=== PATIENT | male | born 1990 | race Caucasian/White ===

== ENCOUNTER 2021-05-13 10:50 | Emergency (ER) | payer OTHER, SELFPAY ==
[2021-05-13 11:21] VITALS: BP 168/100; PULSE 99; RESP 16; TEMP 37.2; O2SAT 99; BMI 33.5
--- NOTE | 2021-05-13 11:48 | PC.NURSE ---
girlfriend gave phone number of mom Zandra Sotelo [phone]
--- NOTE | 2021-05-13 12:00 | ED.PSYCH ---
HPI - Psych General Chief Complaint: Psychiatric Symptoms Stated Complaint: crisis Time Seen by Provider: 05/13/21 11:16 Source: patient Mode of arrival: ambulatory Limitations: no limitations History of Present Illness HPI Narrative: 30-year-old male with history opiate use disorder status post recent opiate detox who is presenting to the ER with ongoing anxiety. He reports a lot of stress from his mother who has been encouraging to come to the hospital for help. He has not been sleeping well and is dealing with a lot of anxiety as he adjusts moving for here from [place]. He states he does not of he is going to stay here or move back to [place]. He has been completely sober from opiates and is not on any methadone or Suboxone. He reports restless legs at night and his mind racing. He is currently not on any psychiatric medications. He reports a trial of Depakote in the past, unclear for what, but he did not like the way it made him feel. He reports using marijuana to help him sleep which has been helping somewhat. He does not have a therapist or psychiatrist. He is open to both of these options. He denies any suicidal or homicidal ideation. He feels safe at home. complaint: anxiety Onset (ago): week(s) Duration: constant History of same: Yes Relieving factors: none Exacerbating factors: other (Distress his mother puts on him) Context: significant life stressor Associated psychiatric symptoms: racing thoughts Associated symptoms: insomnia Treatments prior to arrival: none Related Data Allergies Allergy/AdvReac Type Severity Reaction Status Date / Time shellfish derived Allergy Hives Verified 05/13/21 11:42 Review of Systems Review of Systems: Constitutional: No Fever, No Chills ENT/Mouth: No sore throat, No Rhinorrhea, No Swallowing Difficulty Cardiovascular: No Chest Pain, No SOB, No Orthopnea, No Edema Respiratory: No Cough, No Sputum, No Wheezing, No dyspnea Gastrointestinal: No Nausea, No Vomiting, No Diarrhea, No abdominal Pain Genitourinary: No Dysuria, No Urinary Frequency, No Hematuria Musculoskeletal: No joint pain, No Myalgias, +restless legs Skin: No Skin Lesions, No rash Neuro: No Weakness, No Numbness, No Dizziness, + Headache Psych: + Anxiety/Panic, + Depression, No SI or HI, No AH or VH Heme/Lymph: No Bruising, No Lymphadenopathy Endocrine: No Polyuria, No Polydipsia [facility] Social History Social History Advance Directives: No Advance Directives Information Provided: Yes Physical Exam Vital Signs: Vital Signs: Last Vital Signs Temp 98.9 F 05/13/21 11:21 Pulse 106 H 05/13/21 17:26 Resp 20 05/13/21 17:26 BP 152/84 H 05/13/21 17:26 Pulse Ox 97 05/13/21 17:26 Body Mass Index 33.5 Appearance: Alert. Oriented X3. No acute distress. HEENT: normal external inspection Neck: Normal inspection. Neck supple. CVS: Normal heart rate and rhythm. Pulses normal. Respiratory: No respiratory distress. Breath sounds normal. Abdomen: Soft and nontender. +BS x4 Skin: Skin warm and dry. Normal skin color. Normal skin turgor. No rashes. Extremities: No lower extremity edema. Neuro: Oriented X 3. No motor deficit. No sensory deficit. CN II-XII intact. Psych: did not make eye contact at beginning of interview but opened up, normal thought process, no SI or HI, answers questions appropriately. tapping leg continuously. no tremors. Course Course Course Narrative: 30-year-old male with recent sobriety from opiates after completing a detox program in [facility] presents to the ER with ongoing anxiety for the last 3 weeks since being discharged. He reports significant life stressors from his mother and he just wants to be left alone. He is not sleeping well. He is open to therapy and Psychiatry. He would like to avoid prescription medications and take something [id number] to help him sleep. We discussed Benadryl and melatonin as safe options for him. Will check basic lab workup and have the care team at see him for community resources. At this time he is not suicidal or homicidal; do not anticipate inpatient level of care. Reevaluation(s) Reevaluation #1: After given a dose of Atarax for anxiety patient took a long nap in decline to talk to the personal health coach until he was awake. His urine was positive for fentanyl, barbiturates, and marijuana. Reevaluation #2: Patient spoke with personal health coach, and member of the care team extensively. At this time he just wants to go home. He is interested in the psychiatrist and getting started on medication. He still does not know if he is staying in this area or going back to [place]. He was given multiple resources. He is stable for discharge home with outpatient follow-up. MDM - Psych Lab Data Result diagrams: 05/13/21 12:06 05/13/21 12:06 Labs: Lab Results 05/13/21 05/13/21 05/13/21 Range/Units 12:06 12:06 12:06 WBC 8.7 (4.8-10.8) X10*3/uL RBC 4.80 (4.60-5.80) X10*6/uL Hgb 13.7 L (14.0-18.0) g/dl Hct 41.8 L (42-52) % MCV 87.1 (80-98) fL MCH 28.5 (27.0-33.0) pg MCHC 32.8 (31.0-36.0) g/dl RDW 14.6 (11.0-16.0) % Plt Count 215 (160-400) X10*3/uL MPV 9.6 (9.4-12.4) fL Immature Gran % (Auto) 0.3 (0.0-0.4) % Neut % (Auto) 62.8 (45-73) % Lymph % (Auto) 25.4 (20-40) % Mingo % (Auto) 6.8 (2-11) % Eos % (Auto) 4.2 H (0-4) % Baso % (Auto) 0.5 (0-2) % Lymph # (Auto) 2.2 (1.2-4.9) X10*3/uL Mingo # (Auto) 0.6 (0.1-1.2) X10*3/uL Eos # (Auto) 0.4 (0.0-0.4) X10*3/uL Baso # (Auto) 0.0 (0.0-0.2) X10*3/uL Abs Immat Gran (auto) 0.03 (0.00-0.03) X10*3/uL Absolute Neuts (auto) 5.5 (2.0-8.3) X10*3/uL Absolute Nucleated RBC 0.000 (0.0-0.012) X10*3/uL Nucleated RBC % (auto) 0.0 (0.0-0.2) /100WBC Sodium 141 (135-145) mmol/L Potassium 4.1 (3.3-5.1) mmol/L Chloride 111 H (96-108) mmol/L Carbon Dioxide 23 (22-29) mmol/L Anion Gap 11 L (12-20) BUN 12 (9-16) mg/dL Creatinine 0.93 (0.5-1.4) mg/dL Estim Creat Clear Calc 131.9 Estimated GFR > 60 Random Glucose 118 H (60-115) mg/dL Calcium 9.2 (8.4-10.2) mg/dL Total Bilirubin 0.2 (0.0-1.0) mg/dL AST 10 (5-37) U/L ALT 17 (0-40) U/L Alkaline Phosphatase 99 (39-117) U/L Total Protein 7.0 (6.5-8.0) g/dL Albumin 4.3 (3.5-5.0) g/dL Urine Opiates Screen (Not Detect) Urine Fentanyl Screen (Not Detect) Ur Barbiturates Screen (Not Detect) Ur Phencyclidine Scrn (Not Detect) Ur Amphetamines Screen (Not Detect) U Benzodiazepines Scrn (Not Detect) Urine Cocaine Screen (Not Detect) U Marijuana (THC) Screen (Not Detect) Ethyl Alcohol mg/dL COVID-19 (DOMINIC) Negative (Negative) COVID-19 Clin Com See Note 05/13/21 05/13/21 Range/Units 12:06 12:06 WBC (4.8-10.8) X10*3/uL RBC (4.60-5.80) X10*6/uL Hgb (14.0-18.0) g/dl Hct (42-52) % MCV (80-98) fL MCH (27.0-33.0) pg MCHC (31.0-36.0) g/dl RDW (11.0-16.0) % Plt Count (160-400) X10*3/uL MPV (9.4-12.4) fL Immature Gran % (Auto) (0.0-0.4) % Neut % (Auto) (45-73) % Lymph % (Auto) (20-40) % Mingo % (Auto) (2-11) % Eos % (Auto) (0-4) % Baso % (Auto) (0-2) % Lymph # (Auto) (1.2-4.9) X10*3/uL Mingo # (Auto) (0.1-1.2) X10*3/uL Eos # (Auto) (0.0-0.4) X10*3/uL Baso # (Auto) (0.0-0.2) X10*3/uL Abs Immat Gran (auto) (0.00-0.03) X10*3/uL Absolute Neuts (auto) (2.0-8.3) X10*3/uL Absolute Nucleated RBC (0.0-0.012) X10*3/uL Nucleated RBC % (auto) (0.0-0.2) /100WBC Sodium (135-145) mmol/L Potassium (3.3-5.1) mmol/L Chloride (96-108) mmol/L Carbon Dioxide (22-29) mmol/L Anion Gap (12-20) BUN (9-16) mg/dL Creatinine (0.5-1.4) mg/dL Estim Creat Clear Calc Estimated GFR Random Glucose (60-115) mg/dL Calcium (8.4-10.2) mg/dL Total Bilirubin (0.0-1.0) mg/dL AST (5-37) U/L ALT (0-40) U/L Alkaline Phosphatase (39-117) U/L Total Protein (6.5-8.0) g/dL Albumin (3.5-5.0) g/dL Urine Opiates Screen Not Detected (Not Detect) Urine Fentanyl Screen POSITIVE H (Not Detect) Ur Barbiturates Screen POSITIVE H (Not Detect) Ur Phencyclidine Scrn Not Detected (Not Detect) Ur Amphetamines Screen Not Detected (Not Detect) U Benzodiazepines Scrn Not Detected (Not Detect) Urine Cocaine Screen Not Detected (Not Detect) U Marijuana (THC) Screen POSITIVE H (Not Detect) Ethyl Alcohol < 10 mg/dL COVID-19 (DOMINIC) (Negative) COVID-19 Clin Com Discharge Plan Discharge Clinical Impression: Acute anxiety, Polysubstance abuse Patient Disposition: Home, Self-Care Instructions: Polysubstance Abuse (ED), Anxiety (ED) Additional Instructions: Your urine toxicology screen was positive for fentanyl, barbiturates, and marijuana. Do not use any illicit drugs. Recommend following up with a therapist and a psychiatrist. Recommend [id number] Benadryl and/or melatonin for sleep. If you develop new or worsening symptoms call 911 or come back to the ER for further evaluation.
[2021-05-13 12:12] LABS: MANUAL DIFF FLAG NO
[2021-05-13 12:15] LABS: Basophils Percent Auto 0.5 % (0-2); Eosinophils Absolute Auto 0.4 X10*3/uL (0.0-0.4); Eosinophils Percent Auto 4.2 % (0-4); Hematocrit 41.8 % (42-52); Hemoglobin 13.7 g/dl (14.0-18.0); Imm Gran Abs Auto 0.03 X10*3/uL (0.00-0.03); Imm Gran Pct Auto 0.3 % (0.0-0.4); Lymphocytes Absolute Auto 2.2 X10*3/uL (1.2-4.9); Lymphocytes Percent Auto 25.4 % (20-40); Mean Corpuscular HGB Conc 32.8 g/dl (31.0-36.0); Mean Corpuscular Hemoglobin 28.5 pg (27.0-33.0); Mean Corpuscular Volume 87.1 fL (80-98); Mean Platelet Volume 9.6 fL (9.4-12.4); Monocytes Absolute Auto 0.6 X10*3/uL (0.1-1.2); Monocytes Percent Auto 6.8 % (2-11); Neutrophils Absolute Auto 5.5 X10*3/uL (2.0-8.3); Neutrophils Percent Auto 62.8 % (45-73); Platelet Count 215 X10*3/uL (160-400); Red Cell Distribution Width 14.6 % (11.0-16.0); White Blood Count 8.7 X10*3/uL (4.8-10.8)
[2021-05-13 12:31] LABS: Ethanol < 10 mg/dL
[2021-05-13 12:32] LABS: COVID-19 Test Negative (Negative)
[2021-05-13 12:35] LABS: Alanine Aminotransferase 17 U/L (0-40); Albumin Level 4.3 g/dL (3.5-5.0); Alkaline Phosphatase 99 U/L (39-117); Amphetamine Screen Urine Not Detected (Not Detect); Anion Gap 11 (12-20); Aspartate Amino Transferase 10 U/L (5-37); Barbiturates, Urine POSITIVE (Not Detect); Benzodiazepines Screen Urine Not Detected (Not Detect); Bilirubin Total 0.2 mg/dL (0.0-1.0); Blood Urea Nitrogen 12 mg/dL (9-16); Calcium 9.2 mg/dL (8.4-10.2); Cannabinoid Screen Urine POSITIVE (Not Detect); Carbon Dioxide 23 mmol/L (22-29); Chloride 111 mmol/L (96-108); Cocaine Screen Urine Not Detected (Not Detect); Creatinine Clr Calc Pharmacy 131.9; Estimated Glomerular Filt Rate > 60; Fentanyl, urine POSITIVE (Not Detect); Glucose Random 118 mg/dL (60-115); Opiate Screen Urine Not Detected (Not Detect); Phencyclidine Screen Urine Not Detected (Not Detect); Potassium 4.1 mmol/L (3.3-5.1); Sodium 141 mmol/L (135-145)
[2021-05-13] MEDS: hydrOXYzine HCL 50 MG TABLET PO (12:53)
--- NOTE | 2021-05-13 15:35 | MHC.CARE ---
CARE Team met with patient in [facility]; he was alert and oriented, anxious, slightly irritable, unable to articulate what he needed help with. Girlfriend, at bedside stated that patient has been feeling this way for weeks and his family wants him to get more help. Currently patient does not have outpatient providers in this area and had expressed interest in services but did not want to make plans because his living situation was [facility] in [facility]. Patient stated he wanted to get some rest and had just received PRN Atarax. When he wakes, CARE Team will be available to make outpatient referrals, Recovery Team/Position Clerk can meet with patient later as well.
[2021-05-13 17:26] VITALS: BP 152/84; PULSE 106; RESP 20; O2SAT 97
[2021-05-13] MEDS: Albuterol Sulfate 90 MCG 8 GM INHALER 2 PUFF INHALE (17:30)
--- NOTE | 2021-05-13 19:10 | MHC.RECOVSUP ---
? Reason for consult:Recovery Support o?? Current location ?[facility] o?? Identified substance use concern Fentanyl? ?? Withdrawal ?? Support ? Intervention: o?? Community resources provided o?? Harm reduction discussion ? Plan: o?? Follow up tomorrow? o?? Patient awaiting crisis evaluation o?? Patient to follow up with [facility] after discharge ? Additional information: ?Pt. 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 is from [place] were he use car-fentanyl.Pt. wants to talk to a therapist and hopefully get on medication for his anxiety.Gave info about [facility] and other resources in the community.
--- NOTE | 2021-05-13 19:28 | MHC.CARE ---
CARE Team met with pt to offer him outpatient referrals, but pt stated it's not a mental thing, and declined referrals. Pt requested to be discharged. CARE Team offered pt a Lyft ride home, pt declined offer.
== END 2021-05-13 20:24 | disposition home or self-care (01) ==
PROVIDERS: Physician Assistant; Emergency Provider Emergency Medicine Emergency Medical Services
DX: F33.1 Major depressive disorder, recurrent, moderate (principal); F41.1 Generalized anxiety disorder; F43.0 Acute stress reaction; F11.10 Opioid abuse, uncomplicated; F12.10 Cannabis abuse, uncomplicated; Z20.822 Contact with and (suspected) exposure to COVID-19; Z71.51 Drug abuse counseling and surveillance of drug abuser; Z79.899 Other long term (current) drug therapy
CPT/HCPCS: 80053; 80307; 82077; 85025; 87635; 99284